=== PATIENT | male | born 1990 | race Two or more races ===

== ENCOUNTER → 2016-12-07 | Outpatient (REF) | payer OTHER | LOC: M SMT 13:02 | PROVIDERS: ATTEND Nurse Practitioner Family | DX: R31.9 Hematuria, unspecified (principal) ==

== ENCOUNTER → 2016-12-18 | Outpatient (CLI) | payer OTHER ==
--- NOTE | 2016-12-25 08:39 | SLEEPMSLT ---
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 Diagnostic testing was initiated and 8 hours and 5 minutes of data were reviewed. There were 401 minutes of sleep identified. Sleep latency was prolonged at 59 minutes. Rapid eye movement (REM) latency was normal at 115 minutes. Sleep architecture was fairly good. There was some fragmentation early in the initial portion of the study. 3 REM periods were appreciated. Overall sleep efficiency was 83%. The patient's EKG showed a sinus rhythm with an average heart rate of 58 beats per minute. EEG showed fairly normal waveforms for awake and sleep. No focal events were identified. There were only 11 respiratory events identified of 10 seconds in duration or greater for an apnea hypopnea index well within normal limits at 1.6. There was some snoring noted, but respiratory related arousals occurred only 2.8 times per hour. Some limb activity was noted as well, but no trains of events. Limb movement arousal index was 4.8. Oxygen saturations remained normal throughout the study. Nocturnal polysomnography was followed by multiple sleep latency testing. Nap opportunities were offered at two hour intervals. Sleep was seen on the first 3 nap opportunities with a mean sleep latency of 12.8 minutes. REM sleep was clearly appreciated on 2 of the nap opportunities. IMPRESSION: Normal nocturnal polysomnography with borderline multiple sleep latency testing and 2 sleep onset REM periods is consistent with the clinical diagnosis of narcolepsy. RECOMMENDATION: Pending results of the patient's toxicology screening, interventions to address excessive somnolence may be helpful.
[2016-12-26 09:34] LABS: SUMMARY SEE SEPARATE REPORT
== END ==
LOC: M SLEEP 19:41
PROVIDERS: ATTEND Internal Medicine Pulmonary Disease
DX: F51.9 Sleep disorder not due to a substance or known physiological condition, unspecified (principal)

== ENCOUNTER → 2016-12-21 | Outpatient (CLI) | payer OTHER ==
[~2016-12-21] MED LIST: ISOVUE-370 76% 100ML VIAL (Q9967) As Ordered ONE
--- NOTE | 2016-12-22 02:14 | REP ---
Clinical: Hematuria. Technique: Axial precontrast, contrast enhanced, and delayed images of the abdomen and pelvis using 100 ml Isovue 370 intravenous contrast material with coronal and sagittal re-formations. Findings: Evaluation of the urinary tract system demonstrates a 2 mm nonobstructing left renal calculus. The bilateral kidneys/ureters and bladder are otherwise normal in appearance in all phases of imaging. Liver, spleen, pancreas, gallbladder, and bilateral adrenal glands are normal. The enteric system is without obstruction or acute inflammatory process and a normal terminal ileum and appendix are identified in the right lower quadrant. Pelvis demonstrates normal bladder and age appropriate prostate/seminal vesicles. Rectosigmoid colon appears normal. No pelvic fluid/ascites. No free air. No adenopathy. Vasculature is normal. Musculoskeletal structures are intact. Impression: 2 mm nonobstructing left renal calculus. Otherwise normal pre and postcontrast CT of the abdomen and pelvis. Signed by Nito Quintanilla MD 12/22/2016 02:06 A
== END ==
LOC: M RAD 08:54
PROVIDERS: ATTEND Nurse Practitioner Family
DX: R31.9 Hematuria, unspecified (principal); N20.0 Calculus of kidney
CPT/HCPCS: 74178; Q9967

== ENCOUNTER → 2017-01-11 | Outpatient (CLI) | payer OTHER ==
[~2017-01-11] MED LIST changes: +IBUP-1022 PO; +LISI10TA4 PO; +PROV100T25 PO
--- NOTE | 2017-01-11 09:16 | REP ---
Clinical: Narcolepsy and cataplexy. Comparison: None. Technique: Axial pre and postcontrast images from the skull base to the vertex using 100 ml Isovue 370 intravenous contrast material. Findings: The ventricles, sulci, and cisterns are normal in position and appearance. Calle-white differentiation is maintained. No acute intracranial hemorrhage, mass/mass effect, pathology or trauma/injury. Vascularity appears normal and symmetric throughout the bilateral hemispheres and posterior fossa. No evidence for acute infarction. No extra-axial fluid collection. Calvarium is intact. Paranasal sinuses and mastoid air cells are clear. Impression: Normal pre and postcontrast head CT. No evidence for acute intracranial pathology or trauma/injury. Signed by Nito Quintanilla MD 01/11/2017 08:55 A
== END ==
LOC: M RAD 07:32
PROVIDERS: ATTEND Internal Medicine Pulmonary Disease
DX: G47.419 Narcolepsy without cataplexy (principal)
CPT/HCPCS: 70470; Q9967

== ENCOUNTER → 2017-01-12 | Outpatient (CLI) | payer OTHER ==
[~2017-01-12] MED LIST changes: -ISOVUE-370 76% 100ML VIAL (Q9967) As Ordered ONE
[2017-01-20 00:08] LABS: DQA1*01:02 Negative (.); DQB1*06:02 Negative (.)
== END ==
LOC: M LAB 11:26
PROVIDERS: ATTEND Internal Medicine Pulmonary Disease
DX: G47.419 Narcolepsy without cataplexy (principal)

== ENCOUNTER 2017-02-26 12:30 | Emergency (ER) | payer OTHER ==
[~2017-02-26] VITALS: Ht 172.7 cm; Wt 81.8 kg
[2017-02-26] MEDS ORDERED: PROV100T25 PO (12:38)
[2017-02-26] MEDS ORDERED: IBUP-1022 PO (12:38)
[2017-02-26 13:35] LABS: BASO % 0.3 % (0.0-1.0); EOS % 0.1 % (0.0-3.0); LARGE UNSTAINED CELL # 0.1 K/mm3 (0.0-0.4); LARGE UNSTAINED CELL % 2.1 % (0.0-4.0); LYMPH # 1.8 K/mm3 (1.5-6.5); MEAN CORPUSCULAR HGB CONC 35.4 g/dl (32.0-36.5); MEAN CORPUSCULAR VOLUME 84.8 fl (80.0-96.0); MONO # 0.4 K/mm3 (0.0-0.8); MONO % 6.4 % (0.0-5.0); NEUTROPHILS % 63.1 % (36.0-66.0); PLATELET COUNT, AUTOMATED 237 k/mm3 (150-450); RED CELL DISTRIBUTION WIDTH 12.3 % (11.5-14.5); WHITE BLOOD COUNT 6.3 K/mm3 (4.0-10.0)
[2017-02-26 13:51] LABS: ANION GAP 10 MEQ/L (8-16); BLOOD UREA NITROGEN 12 MG/DL (7-18); CALCIUM LEVEL 9.6 MG/DL (8.5-10.1); CARBON DIOXIDE LEVEL 26 MEQ/L (21-32); CHLORIDE LEVEL 103 MEQ/L (98-107); CREATININE FOR GFR 1.04 MG/DL (0.70-1.30); GLOMERULAR FILTRATION RATE > 60.0 (>60); GLUCOSE, FASTING 107 MG/DL (70-105); POTASSIUM SERUM 3.7 MEQ/L (3.5-5.1); SODIUM LEVEL 139 MEQ/L (136-145)
[2017-02-26 14:28] LABS: METHADONE URINE NEGATIVE (NEGATIVE)
[2017-02-26] MEDS ORDERED: LISINOPRIL 10 MG TAB PO ONE (15:00)
[2017-02-26] MEDS ORDERED: LISI10TA4 PO (15:08)
[2017-02-26 15:23] VITALS: BP 154/83
[2017-02-26 15:26] VITALS: BP 154/83
--- NOTE | 2017-02-26 20:32 | ECGEPIP ---
Stationary ECG Study [facility] - ED Test Date: 2017-02-26 Pat Name: JAILYN MARROQUIN Department: Room: - Gender: M Manager School: [employer] : 1990 Requested By: Jarrod Benavides Order Number: [id number] Reading MD: Jessica Gutierrez Measurements Intervals [place] Rate: 108 P: 62 MN: 167 QRS: 14 QRSD: 110 T: 43 QT: 332 QTc: 446 Interpretive Statements SINUS TACHYCARDIA NSTTW ABNORMALITY ABNORMAL RHYTHM ECG NO PRIOR FOR COMPARISON Electronically Signed On 02-26-2017 20:32:11 EDT by Jessica Gutierrez
== END 2017-02-26 15:30 | disposition home or self-care (01) ==
LOC: EDBD 12:30 → M ED 12:30
DX: I10 Essential (primary) hypertension (principal); F43.10 Post-traumatic stress disorder, unspecified; G47.419 Narcolepsy without cataplexy; Z88.1 Allergy status to other antibiotic agents